=== PATIENT | female | born 1955 | race Caucasian/White ===

== ENCOUNTER → 2017-05-06 | Outpatient (CLI) | payer MEDICAID | LOC: MHCPAIN 12:42 | DX: G89.29 Other chronic pain (principal); M47.812 Spondylosis without myelopathy or radiculopathy, cervical region; Z87.891 Personal history of nicotine dependence | CPT/HCPCS: G0463 ==

== ENCOUNTER → 2017-07-04 | Outpatient (CLI) | payer MEDICAID | LOC: MHCPAIN 14:44 | DX: M50.123 Cervical disc disorder at C6-C7 level with radiculopathy (principal); M48.02 Spinal stenosis, cervical region; G96.19 Other disorders of meninges, not elsewhere classified | CPT/HCPCS: J1100; J2250; J3010; Q9967 ==

== ENCOUNTER → 2017-07-15 | Outpatient (CLI) | payer MEDICAID | LOC: MHCPAIN 12:48 | DX: G89.29 Other chronic pain (principal); M50.90 Cervical disc disorder, unspecified, unspecified cervical region; M54.12 Radiculopathy, cervical region | CPT/HCPCS: G0463 ==

== ENCOUNTER → 2017-08-08 | Outpatient (CLI) | payer MEDICAID | LOC: MHCPAIN 12:54 | DX: M50.322 Other cervical disc degeneration at C5-C6 level (principal); M50.222 Other cervical disc displacement at C5-C6 level; G96.19 Other disorders of meninges, not elsewhere classified | CPT/HCPCS: J1100; J2250; J3010; Q9967 ==

== ENCOUNTER → 2017-09-04 | Outpatient (CLI) | payer MEDICAID | LOC: MHCPAIN 13:26 | DX: G89.29 Other chronic pain (principal); M50.10 Cervical disc disorder with radiculopathy, unspecified cervical region; Z87.891 Personal history of nicotine dependence | CPT/HCPCS: G0463 ==

== ENCOUNTER → 2017-09-19 | Outpatient (CLI) | payer MEDICAID | LOC: MHCPAIN 12:31 | DX: M50.322 Other cervical disc degeneration at C5-C6 level (principal) ==

== ENCOUNTER → 2017-10-02 | Outpatient (CLI) | payer MEDICAID | LOC: MHCPAIN 13:11 | DX: G89.29 Other chronic pain (principal); M50.10 Cervical disc disorder with radiculopathy, unspecified cervical region; Z87.891 Personal history of nicotine dependence | CPT/HCPCS: G0463 ==

== ENCOUNTER → 2017-12-13 | Outpatient (CLI) | payer MEDICAID | LOC: MHCPAIN 10:53 | DX: G89.29 Other chronic pain (principal); M50.90 Cervical disc disorder, unspecified, unspecified cervical region; M54.12 Radiculopathy, cervical region | CPT/HCPCS: G0463 ==

== ENCOUNTER → 2018-02-12 | Outpatient (CLI) | payer MEDICAID | LOC: MHCPAIN 10:41 | DX: G89.29 Other chronic pain (principal); M50.90 Cervical disc disorder, unspecified, unspecified cervical region; M54.12 Radiculopathy, cervical region; M54.81 Occipital neuralgia; R51 Headache | CPT/HCPCS: G0463 ==

== ENCOUNTER → 2018-04-14 | Outpatient (CLI) | payer MEDICAID | LOC: MHCPAIN 10:04 | DX: G89.29 Other chronic pain (principal); M50.90 Cervical disc disorder, unspecified, unspecified cervical region; M54.12 Radiculopathy, cervical region | CPT/HCPCS: G0463; J1100; J1885; J2405; J7120 ==

== ENCOUNTER → 2018-06-04 | Outpatient (CLI) | payer MEDICAID | LOC: MHCPAIN 12:33 | DX: G89.29 Other chronic pain (principal); M54.12 Radiculopathy, cervical region; M54.81 Occipital neuralgia; R51 Headache; M47.812 Spondylosis without myelopathy or radiculopathy, cervical region | CPT/HCPCS: G0463 ==

== ENCOUNTER → 2018-09-02 | Outpatient (CLI) | payer MEDICAID | LOC: MHCPAIN 12:48 | DX: G89.29 Other chronic pain (principal); M54.12 Radiculopathy, cervical region; M54.81 Occipital neuralgia; R51 Headache; M47.812 Spondylosis without myelopathy or radiculopathy, cervical region | CPT/HCPCS: G0463 ==

== ENCOUNTER → 2018-11-18 | Outpatient (CLI) | payer MEDICAID | LOC: MHCPAIN 12:51 | DX: G89.29 Other chronic pain (principal); M54.12 Radiculopathy, cervical region; M54.81 Occipital neuralgia; R51 Headache; M47.812 Spondylosis without myelopathy or radiculopathy, cervical region | CPT/HCPCS: G0463 ==

== ENCOUNTER → 2019-02-17 | Outpatient (CLI) | payer MEDICAID | LOC: MHCPAIN 12:47 | DX: G89.29 Other chronic pain (principal); M54.12 Radiculopathy, cervical region; R51 Headache; M47.812 Spondylosis without myelopathy or radiculopathy, cervical region | CPT/HCPCS: G0463 ==

== ENCOUNTER → 2019-04-21 | Outpatient (CLI) | payer MEDICAID | LOC: MHCPAIN 13:33 | DX: G89.29 Other chronic pain (principal); M54.12 Radiculopathy, cervical region; M47.812 Spondylosis without myelopathy or radiculopathy, cervical region; R51 Headache | CPT/HCPCS: G0463 ==

== ENCOUNTER → 2019-06-16 | Outpatient (CLI) | payer MEDICAID | LOC: MHCPAIN 13:46 | DX: M54.12 Radiculopathy, cervical region (principal); M54.81 Occipital neuralgia | CPT/HCPCS: G0463 ==

== ENCOUNTER → 2019-07-02 | Outpatient (CLI) | payer MEDICAID | LOC: MHCPAIN 12:42 | DX: M54.2 Cervicalgia (principal) | CPT/HCPCS: J1100; Q9967 ==

== ENCOUNTER → 2019-11-17 | Outpatient (CLI) | payer MEDICAID | LOC: MHCPAIN 12:58 | DX: M47.812 Spondylosis without myelopathy or radiculopathy, cervical region (principal); M54.2 Cervicalgia; R51 Headache; G89.29 Other chronic pain; M54.12 Radiculopathy, cervical region | CPT/HCPCS: G0463 ==

== ENCOUNTER → 2020-02-16 | Outpatient (CLI) | payer MEDICAID | LOC: MHCPAIN 13:10 | DX: M47.812 Spondylosis without myelopathy or radiculopathy, cervical region (principal); M54.81 Occipital neuralgia; M54.2 Cervicalgia; G89.29 Other chronic pain | CPT/HCPCS: G0463 ==

== ENCOUNTER → 2020-05-16 | Outpatient (CLI) | payer MEDICAID | LOC: MHCPAIN 13:13 | DX: M47.812 Spondylosis without myelopathy or radiculopathy, cervical region (principal); M54.2 Cervicalgia; R51.9 Headache, unspecified | CPT/HCPCS: J1100; Q9967 ==

== ENCOUNTER → 2020-06-09 | Outpatient (CLI) | payer MEDICAID | LOC: MHCPAIN 13:05 | DX: M47.812 Spondylosis without myelopathy or radiculopathy, cervical region (principal); M54.2 Cervicalgia; M96.1 Postlaminectomy syndrome, not elsewhere classified; R51.9 Headache, unspecified | CPT/HCPCS: G0463 ==

== ENCOUNTER → 2020-07-21 | Outpatient (CLI) | payer MEDICAID | LOC: MHCPAIN 08:29 | DX: M47.812 Spondylosis without myelopathy or radiculopathy, cervical region (principal); M54.2 Cervicalgia; R51.9 Headache, unspecified | CPT/HCPCS: G0463; J1100; J2250; J3010 ==

== ENCOUNTER → 2020-09-05 | Outpatient (CLI) | payer MEDICAID | LOC: MHCPAIN 11:10 | DX: M47.817 Spondylosis without myelopathy or radiculopathy, lumbosacral region (principal); M54.16 Radiculopathy, lumbar region | CPT/HCPCS: G0463; J1100; Q9967 ==

== ENCOUNTER → 2020-10-04 | Outpatient (CLI) | payer MEDICAID | LOC: MHCPAIN 14:22 | DX: M47.816 Spondylosis without myelopathy or radiculopathy, lumbar region (principal); M79.2 Neuralgia and neuritis, unspecified; G89.29 Other chronic pain | CPT/HCPCS: G0463 ==